=== PATIENT | female | born 1950 | race Caucasian/White ===

== ENCOUNTER 2019-11-18 07:46 | Observation (INO) | payer MEDICARE, MEDICAID ==
--- NOTE | 2019-11-13 12:21 | EKG REPORT ---
SEVERITY:- ABNORMAL ECG - SINUS RHYTHM FIRST DEGREE AV BLOCK CONSIDER LEFT VENTRICULAR HYPERTROPHY : Confirmed by: Waylon Velasco MD 13-Nov-2019 12:20:33
[2019-11-13 12:26] LABS: HEMATOCRIT 43.2 % (36.0-47.0); HEMOGLOBIN 15.1 g/dL (12.0-15.5); MEAN CORPUSCULAR HEMOGLOBIN 32.1 pg (27.0-33.4); MEAN CORPUSCULAR HGB CONC 34.9 g/dL (32.0-36.0); MEAN CORPUSCULAR VOLUME 92 fl (80-97); PLATELET COUNT 138 10^3/uL (150-450); WHITE BLOOD COUNT 5.8 10^3/uL (4.0-10.5)
[2019-11-13 12:31] LABS: INTERNATIONAL RATION (INR) 0.92; PROTHROMBIN TIME 12.6 SEC (11.4-15.4)
[2019-11-13 12:32] LABS: APPEARANCE,URINE SLIGHTLY-CLOUDY; BILIRUBIN,URINE NEGATIVE (NEGATIVE); COLOR,URINE YELLOW; GLUCOSE, URINE NEGATIVE (NEGATIVE); KETONES,URINE NEGATIVE (NEGATIVE); LEUKOCYTE ESTERASE,URINE SMALL (NEGATIVE); NITRITE,URINE NEGATIVE (NEGATIVE); PROTEIN,URINE NEGATIVE (NEGATIVE); URINE SPECIFIC GRAVITY 1.006
[~2019-11-18 07:46] MED LIST: CLINDAMYCIN 600 MG/D5W RTU 600 MG/50 ML RTUPB IV PRN; LACTATED RINGERS 1000 ML IV PRN; LIDOCAINE 0.5% INJ-PF (5 MG/ML) 50 ML SDV SUBCUT PRN
[2019-11-18] MEDS ORDERED: PROPOFOL INJ 200 MG/20 ML VIAL IV ONE (09:05)
[2019-11-18] MEDS ORDERED: FENTANYL CITRATE INJ/PF 100 MCG/2 ML AMPUL ONE (09:05)
[2019-11-18] MEDS ORDERED: MIDAZOLAM 2 MG/2 ML INJ ONE (09:05)
[2019-11-18] MEDS ORDERED: ONDANSETRON HCL INJ/PF 4 MG/2 ML SDV ONE (09:05)
[2019-11-18] MEDS ORDERED: KETAMINE HCL INJ 500 MG/10 ML VIAL ONE (09:05)
[2019-11-18] MEDS ORDERED: DEXAMETHASONE SOD PHOSPHATE INJ 4 MG/1 ML VIAL ONE (09:05)
[2019-11-18] MEDS ORDERED: LIDOCAINE 1% INJ-PF (10 MG/ML) 30 ML SDV ONE (09:06)
[2019-11-18] MEDS ORDERED: SODIUM BICARBONATE 4.2% INJ (2.5 MEQ/5 ML) VIAL ONE (09:07)
[2019-11-18] MEDS ORDERED: BUPIVACAINE HCL 0.25% /EPINEPHRINE INJ/PF 30 ML SDV ONE ×2 (09:07)
[2019-11-18] MEDS ORDERED: CLINDAMYCIN 600 MG/D5W RTU 600 MG/50 ML RTUPB IV ONE (09:26)
[2019-11-18 09:31] LABS: APPEARANCE,URINE SLIGHTLY-CLOUDY; BILIRUBIN,URINE NEGATIVE (NEGATIVE); COLOR,URINE YELLOW; GLUCOSE, URINE NEGATIVE (NEGATIVE); KETONES,URINE NEGATIVE (NEGATIVE); LEUKOCYTE ESTERASE,URINE SMALL (NEGATIVE); NITRITE,URINE NEGATIVE (NEGATIVE); PROTEIN,URINE NEGATIVE (NEGATIVE); URINE SPECIFIC GRAVITY 1.015
[2019-11-18] MEDS ORDERED: MEPERIDINE HCL/PF INJ 25 MG/1 ML DISP.SYRIN IV PRN (10:07)
[2019-11-18] MEDS ORDERED: PROMETHAZINE HCL INJ 25 MG/1 ML VIAL IV PRN ×2 (10:07)
[2019-11-18] MEDS ORDERED: ONDANSETRON HCL INJ/PF 4 MG/2 ML SDV IV PRN (10:07)
[2019-11-18] MEDS ORDERED: DIPHENHYDRAMINE HCL 50 MG/ML VIAL IV PRN (10:07)
[2019-11-18] MEDS ORDERED: FENTANYL CITRATE INJ/PF 100 MCG/2 ML AMPUL IV PRN ×3 (10:07)
[2019-11-18] MEDS ORDERED: CLINDAMYCIN PHOSPHATE INJ 300 MG/2 ML SDV ONE (11:33)
--- NOTE | 2019-11-18 11:56 | Operative Report ---
Operative Report DATE OF SURGERY: 11/18/19 PREOPERATIVE DIAGNOSIS: Nonfunctioning spinal cord stimulator system POSTOPERATIVE DIAGNOSIS: Same OPERATION: [place] of right and left spinal cord stimulating electrodes followed by implantation of programmable rechargeable programmable nonrechargeable pulse generator next number fluoroscopy for lead placement next number complex programming and analysis pulse generator next number transection of existing electrodes SURGEON: Elizabeth Trejo ANESTHESIA: LMAC TISSUE REMOVED OR ALTERED: Lead extensions COMPLICATIONS: Dural puncture ESTIMATED BLOOD LOSS: Minimal PROCEDURE: After obtaining informed consent advising the patient of the risk and benefits the patient had requested a new system with no electrodes followed by removal of her pulse generator in her abdomen pocket. He was brought to the operating room placed comfortably in the prone position. Comfort was assessed visually and verbally. MAC anesthesia was administered per anesthesia after application of monitoring devices she was then prepped and draped with chlorhexidine and appropriate drying time. Fluoroscopy was then utilized to evaluate the spine the existing stimulation equipment was noted the paddle electrode at the bottom of T10 to the top of that bottom of T10 to the bottom of T11 his wires exited in the superficial tissues to the right of midline to her pulse generator in her right abdominal wall. Landmarks were identified for an approach to place 2 new electrodes small incision was made after local anesthesia was applied from the T2-T3 local with spinous process area. Blunt dissection were performed down to the lumbar fascia which was readily identified Dionisio was inserted for a ppropriate retraction. Paraspinal musculature down to the T12-L1 space was infiltrated with local anesthesia lidocaine with bicarb on both sides using a spinal needle. Beginning on the right side curved 14-gauge Touhy needle was inserted into the epidural space. CSF was identified and needle was repositioned the electrode was then placed and advanced to the left paramedian location from the top of T8 to the bottom of T9's was then repeated on the left side no dural puncture was noted at that level. Leads were positioned in a parallel location patient was awaken and trial stimulation was performed. Suitable stimulation was identified and appropriate pain generating locations. Was made to proceed with the implant. Patient was then reanesthetized with deep sedation pursestrings were placed around each needle using 0 Mersilene followed by distal stay suture. The left needle was then removed without dislodging the electrode the pursestrings were secured after placing an anchor over the left and the electrode. The distal stay suture was then applied as well. The lead was secured in place. This was repeated on the right electrode. After exploring the midline incision region and evaluating generator size and location decision was made to tunnel the generator to the right Medium location off the spinal paraspinal tissues. The lead extensions for the existing equipment were identified and removed. Should be noted that the plate electrode was left in place and the connector to the plate electrode was left intact. Once all the excess excess equipment was removed hemostasis was evaluated and felt to be satisfactory the pulse generator was placed into the pocket and felt to have suitable room in a suitable location in the left paraspinal region. The region with the leads were connected to the pulse generator all accidents were secured. Due to work on activity was noted. The pulse generator pocket was then irrigated with Betadine containing irrigation solution. The pulse generator was then placed with the leads coiled the excess lead material coiled behind the pulse generator. The wound was further irrigated it was then closed with interrupted inverted vertical mattress sutures using 3-0 Polysorb followed by a skin suture of 4-0 Vicryl using a subcuticular technique. Skin was then sealed with Dermabond cement when distress dry Telfa and Tegaderm were placed over this. Next operation was then prepared for with the intentions of placing the patient in the supine position for removal of the battery end of dictation please see that I have a copy of this note
--- NOTE | 2019-11-18 12:00 | Operative Report ---
Operative Report DATE OF SURGERY: 11/18/19 PREOPERATIVE DIAGNOSIS: Nonfunctioning spinal cord stimulator pulse generator POSTOPERATIVE DIAGNOSIS: Same OPERATION: Removal of nonfunctioning spinal cord stimulator pulse generator SURGEON: AMINTA REESE ANESTHESIA: LMAC COMPLICATIONS: None ESTIMATED BLOOD LOSS: Minimal PROCEDURE: As part of her informed consent from her prior surgical services for implantation of the new spinal cord stimulating system consent was obtained for removal of the pulse generator with the understanding that there was a risk of bleeding infection and postoperative pain as well as chronic intractable pain secondary to multiple surgeries. Patient was on the in the supine position. She was prepped with chlorhexidine with appropriate drying time. MAC anesthesia was being delivered without complication. After draping the pulse generator site was readily palpated the skin was anesthetized over the prior scar site with 1% lidocaine with bicarb blunt dissection were performed in the pulse generator and all of its lead extensions were removed without difficulty. Copiously irrigated. Stasis was evaluated and was satisfactory and controlled with minimal effort with electrocautery. Inner pocket was then closed with an interrupted vertical mattress sutures using 3-0 Polysorb the irrigation was performed and the skin was then closed with a running subcuticular stitch of 4-0 Polysorb. Was completed the skin was sealed with Dermabond cement followed by Telfa and Tegaderm prior to placing the dressing the skin edges were infiltrated with quarter percent bupivacaine with epinephrine. Patient tolerated this procedure quite well. He was then taken to the PACU for further postoperative care and monitoring. Should be noted that a second dose of antibiotics was given prior to the next to the second surgical procedure.
[2019-11-18] MEDS: OXYCODONE-ACETAMINOPHEN 5-325 MG TABLET PO PRN ×3 (13:54→23:23)
[2019-11-18] MEDS ORDERED: PHENYLEPHRINE HCL INJ/PF 10 MG/1 ML SDV ONE (14:26)
[2019-11-18] MEDS ORDERED: METOPROLOL TARTRATE PF/INJ 5 MG/5 ML SDV IV ONE (14:26)
[2019-11-18] MEDS ORDERED: NORMAL SALINE INJ/PF 0.9% 10 ML SDV ONE (14:26)
--- NOTE | 2019-11-18 16:59 | RADIOLOGY REPORT (SQ) ---
EXAM DESCRIPTION: THORACOLUMBAR SPINE AP/LAT; NO CHG FLUORO IMAGES COMPLETED DATE/TIME: 11/18/2019 12:29 pm REASON FOR STUDY: SPINAL STIMULATOR PLCMT ASSISTED WITH FLUORO IN OR M96.1 POSTLAMINECTOMY SYNDROME , NOT ELSEWHERE CLASSIFIED Z79.01 SHELTER (CURRENT) USE OF ANTICOAGULANTS COMPARISON: None. FLUOROSCOPY TIME: 6.9 minutes. 33 images saved to PACS. TECHNIQUE: Intra-operative images acquired during surgical procedure to evaluate progress. NUMBER OF IMAGES: 33 minutes. LIMITATIONS: None. FINDINGS: Images of the spine acquired during electrode placement. IMPRESSION: IMAGE(S) OBTAINED DURING PROCEDURE. COMMENT: Quality ID [id number]: Final reports for procedures using fluoroscopy that document radiation exp osure indices, or exposure time and number of fluorographic images (if radiation exposure indices are not available) Please consult full operative report of the attending physician for description of the procedure. TECHNICAL DOCUMENTATION: JOB ID: [id number] 2010 [employer]- All Rights Reserved Reading location - IP/workstation name: [email or web address]
--- NOTE | 2019-11-18 16:59 | RADIOLOGY REPORT (SQ) ---
EXAM DESCRIPTION: THORACOLUMBAR SPINE AP/LAT; NO CHG FLUORO IMAGES COMPLETED DATE/TIME: 11/18/2019 12:29 pm REASON FOR STUDY: SPINAL STIMULATOR PLCMT ASSISTED WITH FLUORO IN OR M96.1 POSTLAMINECTOMY SYNDROME , NOT ELSEWHERE CLASSIFIED Z79.01 LONG-TERM (CURRENT) USE OF ANTICOAGULANTS COMPARISON: None. FLUOROSCOPY TIME: 6.9 minutes. 33 images saved to PACS. TECHNIQUE: Intra-operative images acquired during surgical procedure to evaluate progress. NUMBER OF IMAGES: 33 minutes. LIMITATIONS: None. FINDINGS: Images of the spine acquired during electrode placement. IMPRESSION: IMAGE(S) OBTAINED DURING PROCEDURE. COMMENT: Quality ID [id number]: Final reports for procedures using fluoroscopy that document radiation exp osure indices, or exposure time and number of fluorographic images (if radiation exposure indices are not available) Please consult full operative report of the attending physician for description of the procedure. TECHNICAL DOCUMENTATION: JOB ID: [id number] 2010 [employer]- All Rights Reserved Reading location - IP/workstation name: [email or web address]
[2019-11-19 02:42] VITALS: BP 134/50
[2019-11-19] MEDS: OXYCODONE-ACETAMINOPHEN 5-325 MG TABLET PO PRN ×2 (05:07→11:40)
== END 2019-11-19 13:33 | disposition home or self-care (01) ==
LOC: OROUT 07:46 → 4N 11:15
PROVIDERS: ADMIT Pain Medicine Interventional Pain Medicine; ATTEND Pain Medicine Interventional Pain Medicine
PROC: 0JWT0MZ Revision of Stimulator Generator in Trunk Subcutaneous Tissue and Fascia, Open Approach (ICD-10-PCS; 2019-11-18)
PROC: 00WU3MZ Revision of Neurostimulator Lead in Spinal Canal, Percutaneous Approach (ICD-10-PCS; principal; 2019-11-18 10:00)
DX: T85.192A Other mechanical complication of implanted electronic neurostimulator of spinal cord electrode (lead), initial encounter (principal); M96.1 Postlaminectomy syndrome, not elsewhere classified; M54.16 Radiculopathy, lumbar region; X58.XXXA Exposure to other specified factors, initial encounter; Z88.0 Allergy status to penicillin; Z79.01 Long term (current) use of anticoagulants; Z03.818 Encounter for observation for suspected exposure to other biological agents ruled out
CPT/HCPCS: 63663; 63688; 93005; 36415; 85027; 85610; 85730; 81001 ×2; 72080; 93010; 01936; G0378 ×2; C1778; C1767; C1820; C1787; U0003; J2250; J3490 ×7; J1100; J3010; A9270 ×2; J2370; J2405; J7120; J2704; C9803; 1936; 87635